=== PATIENT | female | born 1990 | race African-American/Black ===

== ENCOUNTER 2019-11-21 06:58 | Day surgery (SDC) | payer OTHER ==
[~2019-11-21] VITALS: Ht 160 cm; Wt 68.3 kg
[~2019-11-21 06:58] MED LIST: RINGERS SOLUTION,LACTATED 1,000 ML IV ONE
[2019-11-21] MEDS ORDERED: PROPOFOL 1% 20 ML VIAL IVP ONE (06:59)
[2019-11-21] MEDS ORDERED: SUCCINYLCHOLINE CHLORIDE 20 MG/ML 10 ML VIAL IVP ONE (06:59)
[2019-11-21] MEDS ORDERED: LIDOCAINE/PF 2% 5 ML VIAL IM ONE (06:59)
[2019-11-21] MEDS ORDERED: DEXAMETHASONE SOD PHOS 4 MG/ML VIAL IVP ONE (06:59)
[2019-11-21] MEDS ORDERED: ONDANSETRON HCL 4 MG/2 ML VIAL IVP ONE (06:59)
[2019-11-21] MEDS ORDERED: FentaNYL CITRATE-PF 100 MCG/2 ML VIAL IVP ONE (06:59)
[2019-11-21] MEDS ORDERED: AMPICILLIN SODIUM 1 GM/VIAL ONE (07:52)
[2019-11-21] MEDS ORDERED: SODIUM CHLORIDE 0.9% 100 ML ONE (07:53)
[2019-11-21 07:58] LABS: EOSINOPHILS % (AUTO) 11.6 % (1.0-6.0); HEMOGLOBIN 15.6 g/dL (12.0-16.0); LYMPHOCYTES # (AUTO) 1.5 K/uL (1.0-4.8); LYMPHOCYTES % (AUTO) 26.2 % (22.0-44.0); MEAN CORPUSCULAR HEMOGLOBIN 32.5 pg (26.0-34.0); MEAN CORPUSCULAR VOLUME 96 fL (80-100); MONOCYTES # (AUTO) 0.5 K/uL (0.1-1.0); MONOCYTES % (AUTO) 8.4 % (2.0-9.0); NEUTROPHILS % (AUTO) 52.8 % (40.0-70.0); PLATELET COUNT (AUTO) 235 K/uL (150-450); RED CELL DISTRIBUTION WIDTH 12.8 % (11.5-14.5)
[2019-11-21 08:10] LABS: PROTHROMBIN TIME 10.3 SEC (9.4-11.6)
[2019-11-21 08:13] LABS: ANION GAP 8 mmol/L (8-16); CALCIUM, TOTAL 9.1 mg/dL (8.8-10.5); CARBON DIOXIDE 27 mmol/L (22-29); CHLORIDE 102 mmol/L (98-107); CREATININE 1.04 mg/dL (0.60-1.30); GLOMERULAR FILTR. RATE CALC > 60 mL/min (>60); GLUCOSE,RANDOM 98 mg/dL (70-110); POTASSIUM 3.9 mmol/L (3.5-5.1); SODIUM SERUM 137 mmol/L (136-145); UREA NITROGEN, BLOOD 19 mg/dL (7-18)
[2019-11-21 08:20] LABS: PLATELET MORPHOLOGY COMMENT GIANT PLTS PRESENT
[2019-11-21 08:26] LABS: ALANINE AMINOTRANSFERASE 21 U/L (12-78); ALBUMIN 3.3 g/dL (3.4-5.0); ALKALINE PHOSPHATASE 78 U/L (46-116); ASPARTATE AMINOTRANSFERASE 16 U/L (15-37); BILIRUBIN,TOTAL 0.2 mg/dL (0.1-1.0); HCG,QUANTITATIVE < 1 mIU/mL (0-6); TOTAL PROTEIN, SERUM 7.4 g/dL (6.4-8.2)
[2019-11-21] MEDS ORDERED: CARBL GT (08:26)
== END 2019-11-21 13:10 | disposition home or self-care (01) ==
LOC: SURGERY 06:58
PROVIDERS: ATTEND Dentist General Practice
DX: K02.9 Dental caries, unspecified (principal); K05.30 Chronic periodontitis, unspecified; K03.6 Deposits [accretions] on teeth; G40.909 Epilepsy, unspecified, not intractable, without status epilepticus; G80.9 Cerebral palsy, unspecified; E66.9 Obesity, unspecified; Z68.26 Body mass index [BMI] 26.0-26.9, adult; Z98.890 Other specified postprocedural states; Z79.899 Other long term (current) drug therapy; Z79.01 Long term (current) use of anticoagulants; R97.8 Other abnormal tumor markers
CPT/HCPCS: 36415; 41899; 71045; 80053; 84702; 85025; 85610; 85730; 93005; J0290; J0330; J1100; J2405; J2704; J3010; J3490; J7050; J7120

== ENCOUNTER 2023-03-10 14:04 | Emergency (ER) | payer OTHER ==
[~2023-03-10] VITALS: Ht 162.6 cm; Wt 68.2 kg
[~2023-03-10 14:04] MED LIST changes: +CARBL GT; -RINGERS SOLUTION,LACTATED 1,000 ML IV ONE
[2023-03-10] MEDS ORDERED: [UNRECOGNIZED DRUG - CODE] PO (14:12)
[2023-03-10] MEDS ORDERED: ATOR40TA71 PO (14:12)
[2023-03-10 14:22] VITALS: BP 110/84
== END 2023-03-10 15:10 | disposition home or self-care (01) ==
LOC: EMS 14:13
DX: K94.23 Gastrostomy malfunction (principal); R56.9 Unspecified convulsions; G80.9 Cerebral palsy, unspecified
CPT/HCPCS: 43762; 99284; Z7502

== ENCOUNTER 2023-12-28 06:48 | Day surgery (SDC) | payer OTHER ==
[~2023-12-28] VITALS: Ht 162.6 cm; Wt 68.2 kg
[~2023-12-28 06:48] MED LIST changes: +ATOR40TA71 PO; -CARBL GT; +[UNRECOGNIZED DRUG - OTHER] PO
[2023-12-28] MEDS ORDERED: RINGERS SOLUTION,LACTATED 1,000 ML IV ONE ×2 (07:13→09:00)
[2023-12-28] MEDS ORDERED: AMPICILLIN SODIUM 2 GM/NS 100 ML IV ONE (07:48)
[2023-12-28] MEDS ORDERED: [UNRECOGNIZED DRUG - CODE] PEG (08:17)
[2023-12-28 08:28] LABS: ANION GAP 8 mmol/L (8-16); CALCIUM, TOTAL 9.2 mg/dL (8.8-10.5); CARBON DIOXIDE 26 mmol/L (22-29); CHLORIDE 101 mmol/L (98-107); CREATININE 0.93 mg/dL (0.60-1.30); GLOMERULAR FILTR. RATE CALC > 60 mL/min (>60); GLUCOSE,RANDOM 102 mg/dL (70-110); SODIUM SERUM 135 mmol/L (136-145); UREA NITROGEN, BLOOD 20 mg/dL (7-18)
[2023-12-28 08:34] LABS: ALANINE AMINOTRANSFERASE 33 U/L (12-78); ALBUMIN 3.1 g/dL (3.4-5.0); ALKALINE PHOSPHATASE 80 U/L (46-116); ASPARTATE AMINOTRANSFERASE 32 U/L (15-37); BILIRUBIN,TOTAL 0.4 mg/dL (0.1-1.0); TOTAL PROTEIN, SERUM 6.9 g/dL (6.4-8.2)
[2023-12-28 08:47] LABS: PROTHROMBIN TIME 10.6 SEC (9.4-11.6)
[2023-12-28] MEDS ORDERED: ROCURONIUM BROMIDE 10 MG/ML 5 ML VIAL ONE (18:05)
[2023-12-28] MEDS ORDERED: ONDANSETRON HCL 4 MG/2 ML VIAL ONE (18:05)
[2023-12-28] MEDS ORDERED: SUGAMMADEX SODIUM 200 MG/2 ML VIAL IVP ONE (18:05)
[2023-12-28] MEDS ORDERED: LIDOCAINE/PF 2% 5 ML SYRINGE IVP ONE (18:05)
[2023-12-28] MEDS ORDERED: DEXAMETHASONE 4 MG TABLET ONE (18:05)
[2023-12-28] MEDS ORDERED: PROPOFOL 1% 20 ML VIAL IVP ONE (18:05)
== END 2023-12-28 12:50 | disposition home or self-care (01) ==
LOC: SURGERY 06:48
PROVIDERS: ATTEND Dentist General Practice
DX: K05.30 Chronic periodontitis, unspecified (principal); K02.9 Dental caries, unspecified; K03.6 Deposits [accretions] on teeth; F41.9 Anxiety disorder, unspecified; G40.909 Epilepsy, unspecified, not intractable, without status epilepticus; K59.00 Constipation, unspecified; Z98.890 Other specified postprocedural states; Z93.1 Gastrostomy status; Z79.01 Long term (current) use of anticoagulants; Z79.899 Other long term (current) drug therapy
CPT/HCPCS: 41899; 71045; 80053; 84703; 85610; 85730; 36415; 93005; J0290; J2704; J8540; J2405; J3490 ×2; Q9967; J7120